=== PATIENT | male | born 1960 | race Hispanic/Latino ===

== ENCOUNTER 2019-08-03 16:29 | Inpatient (IN) | payer MEDICAID, OTHER ==
--- NOTE | 2019-08-03 18:08 | Emergency Department Report ---
<FATEMEH JURADO - Last Filed: 08/04/19 00:06> ED General Adult HPI - General Chief complaint: Chest Pain Stated complaint: CHEST PAIN Time Seen by Provider: 08/03/19 18:03 Source: patient Mode of arrival: Ambulatory Limitations: No Limitations - History of Present Illness Initial comments: 59-year-old male presents to the emergency room complaining of chest pain shortness of breath worse with inhalation 2 days. Patient does admit that he smokes cigarettes but has tapered down to 1-2 a day. Patient reports that he has constant chest pain worsening chest pain and shortness of breath but worse with deep breath. Patient denies any sick contacts, fevers, chills, nausea vomiting or diarrhea. Patient has a significant past medical history hypertension a AR 3 years ago with 2 stents placed.. Patient does admit sleeping with the fan on his face. -: days(s) Location: chest Severity scale (0 -10): 5 Quality: sharp Consistency: constant Worsens with: other (deep breath) Associated Symptoms: denies other symptoms Treatments Prior to Arrival: none - Related Data Home Medications Medication Instructions Recorded Confirmed Last Taken No Known Home Medications [No 02/07/16 02/07/16 Unknown Reported Home Medications] Allergies Allergy/AdvReac Type Severity Reaction Status Date / Time No Known Allergies Allergy Verified 06/07/15 05:39 ED Review of Systems Comment: All other systems reviewed and negative Respiratory: shortness of breath, SOB at rest Cardiovascular: chest pain ED Past Medical Hx - Past Medical History Hx Hypertension: Yes Hx Heart Attack/AMI: Yes Hx Congestive Heart Failure: No Hx Diabetes: No (borderline?) Hx Asthma: No Hx COPD: No - Surgical History Additional Surgical History: R.Knee. Umbilical Hernia - Social History Smoking Status: Current Every Day Smoker Substance Use Type: Alcohol - Medications Home Medications: Home Medications Medication Instructions Recorded Confirmed Last Taken Type No Known Home Medications [No 02/07/16 02/07/16 Unknown History Reported Home Medications] ED Physical Exam - General Limitations: No Limitations General appearance: alert, in no apparent distress - Head Head exam: Present: atraumatic, normocephalic - Eye Eye exam: Present: normal appearance - ENT ENT exam: Present: mucous membranes moist - Neck Neck exam: Present: normal inspection - Respiratory Respiratory exam: Present: other (mild crackles in the right lower lung field) - Cardiovascular Cardiovascular Exam: Present: regular rate, normal rhythm. Absent: systolic murmur, diastolic murmur, rubs, gallop - GI/Abdominal GI/Abdominal exam: Present: soft, normal bowel sounds - Extremities Exam Extremities exam: Present: normal inspection - Back Exam Back exam: Present: full ROM - Neurological Exam Neurological exam: Present: alert, oriented X3 - Psychiatric Psychiatric exam: Present: normal affect, normal mood - Skin Skin exam: Present: warm, dry, intact, normal color. Absent: rash ED Medical Decision Making - Lab Data Result diagrams: 08/03/19 19:36 08/03/19 19:36 - Radiology Data Radiology results: report reviewed Patient: SUAD STEIN MR#: [id number] : 1960 Acct:[id number] Age/Sex: 59 / M ADM Date: 08/03/19 Loc: ED Attending Dr: Ordering Physician: NELLI ROMANO Date of Service: 08/03/19 Procedure(s): CT angio chest Accession Number(s): [id number] cc: NELLI ROMANO CTA CHEST WITH IV CONTRAST INDICATION: SOB with chest pain. TECHNIQUE: Axial CT images were obtained through the chest after injection of 100 cc Omnipaque 350 IV contrast. 3 plane MIP reconstructions were produced. All CT scans at this location are performed using CT dose reduction for ALARA by means of automated exposure control. COMPARISON: None available. FINDINGS: PULMONARY ARTERIES: Large occlusive filling defect within the right lower lobar pulmonary artery and segmental branches. Moderate sized nonocclusive filling defect within the right middle lobar pu lmonary artery. No left-sided PT THORACIC AORTA: No acute abnormality. HEART: Normal. No CTA evidence for right ventricular strain CORONARY ARTERIES: Mild calcification. PLEURA: Small right pleural effusion No pneumothorax. LYMPH NODES: No significant adenopathy. Calcified right perihilar granulomas. LUNGS: Groundglass and streaky parenchymal disease right lower lobe likely secondary to pulmonary hemorrhage. Advanced bullous emphysema both upper lobes. Tiny calcified granuloma right lower lobe image 77. ADDITIONAL FINDINGS: None. UPPER ABDOMEN: Multiple calcified gallstones without CT evidence for cholecystitis. Moderate hepatic steatosis and scattered calcified hepatic and splenic granulomas. Several small bilateral renal cysts. SKELETAL STRUCTURES: Moderate spondylosis lower thoracic spine. IMPRESSION: 1. Large occlusive right lower lobar pulmonary embolus and moderate nonocclusive right middle lobe PTE 2. Parenchymal disease right lower lobe likely secondary to pulmonary hemorrhage with small right pleural effusion. 3. Advanced destructive emphysema 4. Cholelithiasis. Critical result large right-sided PTE discovered at 11:40 PM Central time hours and called to Eugenie Jurado at 11:44 PM central time hours on 08/03/2019. A read back was performed. Signer Name: Elliott Joshua MD Signed: 08/04/2019 12:48 AM Workstation Name: [id number] Transcribed By: TL Dictated By: Elliott Joshua MD Electronically Authenticated By: Elliott Joshua MD Signed Date/Time: 08/04/1947 DD/ TD/TT: - Medical Decision Making 59-year-old male presents to the emergency room complaining of chest pain shortness of breath worse with inhalation 2 days. Patient does admit that he smokes cigarettes but has tapered down to 1-2 a day. Patient reports that he has constant chest pain worsening chest pain and shortness of breath but worse with deep breath. Patient denies any sick contacts, fevers, chills, nausea v omiting or diarrhea. Patient has a significant past medical history hypertension a AR 3 years ago with 2 stents placed.. Patient does admit sleeping with the fan on his face. Discussed findings with Dr. Boyer ER attending. Spoke with Dr. Tran hospitalist to be evaluated for admission. ED Disposition Clinical Impression: Pulmonary embolism Disposition: OP ADMIT IP TO THIS HOSP Condition: Fair Referrals: PRIMARY CAREMD [Primary Care Provider] - 3-5 Days <ESTEBAN BOYER - Last Filed: 08/04/19 02:04> ED Review of Systems ROS: Stated complaint: CHEST PAIN Other details as noted in HPI ED Course Vital Signs 08/03/19 08/03/19 16:55 20:59 Temperature 98.2 F Pulse Rate 69 Respiratory 18 17 Rate Blood Pressure 117/79 O2 Sat by Pulse 95 Oximetry ED Medical Decision Making - Lab Data Result diagrams: 08/03/19 19:36 08/03/19 19:36 - Medical Decision Making Addendum Esteban Hill,M.D. will see patient on consult Okay to stay Per Dr. Adams if vascular on board and okay with plan of anticoagulation with Heparin Spoke to Dr. Stephens and patient reviewed in detail. okay to stay and willing to consult if needed also agrees with heparin Patient seen and examined by me as well patient complains of chest pain with deep breathing and on exertion. Physical exam GEN: A&O x 3, no acute distress Head: atraumatic, normocephalic ENT; Moist Mucous membranes CV: RRR w/o MRG Resp: CTAB Ab:s/nt/nd/+BS Neuro: CN 2-12 intact skin: warm,dry,no rash Psych: Not suicidal or homicidal Eyes: PERRL,EOMI Results discussed with patient and the need for admission Critical Care Time: Yes Critical care time in (mins) excluding proc time.: 90 Critical care attestation.: If time is entered above; I have spent that time in minutes in the direct care of this critically ill patient, excluding procedure time. ED Disposition Is pt being admited?: Yes Does the pt Need Aspirin: No
--- NOTE | 2019-08-03 18:33 | XRay Report ---
CHEST 2 VIEWS INDICATION / CLINICAL INFORMATION: shortness of breath chest pain history of NM. COMPARISON: None available. FINDINGS: SUPPORT DEVICES: None. HEART / MEDIASTINUM: No significant abnormality. LUNGS / PLEURA: Moderate to large right pleural effusion. There is some lucency involving both apices possibly secondary to emphysematous blebs. Signer Name: Payam Crain MD Signed: 08/03/2019 6:28 PM Workstation Name: [id number]
[2019-08-03 19:47] LABS: Basophils # (Auto) 0.1 K/mm3 (0.0-0.1); Basophils % (Auto) 0.4 % (0.0-1.8); Eosinophils % (Auto) 0.3 % (0.0-4.3); Lymphocytes # (Auto) 1.3 K/mm3 (1.2-5.4); Lymphocytes % (Auto) 9.5 % (13.4-35.0); Mean Corpuscular HGB Conc 33 % (32-34); Mean Corpuscular Volume 92 fl (84-94); Monocytes # (Auto) 0.9 K/mm3 (0.0-0.8); Monocytes % (Auto) 6.4 % (0.0-7.3); Platelet Count 240 K/mm3 (140-440); Red Blood Count 4.92 M/mm3 (3.65-5.03); Red Cell Distribution Width 14.8 % (13.2-15.2)
[2019-08-03 20:23] LABS: Alanine Aminotransferase 20 units/L (7-56); Albumin 3.8 g/dL (3.9-5); BUN/Creatinine Ratio 14; Blood Urea Nitrogen 22 mg/dL (9-20); Calcium 9.3 mg/dL (8.4-10.2); Hemolysis Index 9
--- NOTE | 2019-08-04 00:52 | Cat Scan Report ---
CTA CHEST WITH IV CONTRAST INDICATION: SOB with chest pain. TECHNIQUE: Axial CT images were obtained through the chest after injection of 100 cc Omnipaque 350 IV contrast. 3 plane MIP reconstructions were produced. All CT scans at this location are performed using CT dose reduction for ALARA by means of automated exposure control. COMPARISON: None available. FINDINGS: PULMONARY ARTERIES: Large occlusive filling defect within the right lower lobar pulmonary artery and segmental branches. Moderate sized nonocclusive filling defect within the right middle lobar pulmonar y artery. No left-sided PT THORACIC AORTA: No acute abnormality. HEART: Normal. No CTA evidence for right ventricular strain CORONARY ARTERIES: Mild calcification. PLEURA: Small right pleural effusion No pneumothorax. LYMPH NODES: No significant adenopathy. Calcified right perihilar granulomas. LUNGS: Groundglass and streaky parenchymal disease right lower lobe likely secondary to pulmonary hem orrhage. Advanced bullous emphysema both upper lobes. Tiny calcified granuloma right lower lobe image 77. ADDITIONAL FINDINGS: None. UPPER ABDOMEN: Multiple calcified gallstones without CT evidence for cholecystitis. Moderate hepatic steatosis and scattered calcified hepatic and splenic granulomas. Several small bilateral renal cysts . SKELETAL STRUCTURES: Moderate spondylosis lower thoracic spine. IMPRESSION: 1. Large occlusive right lower lobar pulmonary embolus and moderate nonocclusive right middle lobe PT E 2. Parenchymal disease right lower lobe likely secondary to pulmonary hemorrhage with small right ple ural effusion. 3. Advanced destructive emphysema 4. Cholelithiasis. Critical result large right-sided PTE discovered at 11:40 PM Central time hours and called to Eugenie stout at 11:44 PM central time hours on 08/03/2019. A read back was performed. Signer Name: Elliott Joshua MD Signed: 08/04/2019 12:48 AM Workstation Name: [id number]
[2019-08-04] MEDS ORDERED: HEPARIN 10,000 UNITS/10 ML IV ONE (01:57)
[2019-08-04] MEDS: HEPARIN/ 0.45% NACL-25,000 UNIT/500 ML 25,000 UNIT/500 ML BAG IV SCH ×2 (02:40→21:22)
[2019-08-04] MEDS ORDERED: ZOFRAN IV PRN (02:41)
[2019-08-04] MEDS ORDERED: MORPHINE IV PRN (02:41)
[2019-08-04] MEDS ORDERED: TYLENOL PO PRN (02:41)
[2019-08-04] MEDS ORDERED: SODIUM CHLORIDE FLUSH SYRINGE 10 ML IV PRN (02:41)
--- NOTE | 2019-08-04 02:59 | History and Physical Report ---
History of Present Illness Date of examination: 08/04/19 History of present illness: 59-year-old man with a history of hypertension, anxiety comes emergency room with complaints of pleuritic chest pain shortness of breath. Pain is in the epigastric and mid back that started 2 days ago, sharp, only weight deep breaths, no radiation, cannot identify relieving factors. Denies nausea vomiting, diaphoresis, recent travel, surgery eview Of Systems: Constitutional: no weight loss, fever, chills Ears, eyes, nose, mouth and throat: no nasal congestion, no nasal discharge, no sinus pressure, blurry vision, diplopia Neck: No neck pain or rigidity. Cardiovascular: No palpitations Respiratory: No cough Gastrointestinal: No hematochezia, abdominal pain Genitourinary : no dysuria, frequency , hematuria Musculoskeletal: no muscle ache , joint pain Integumentary: no rash, no pruritis Neurological: no parathesias, focal weakness Endocrine: no cold or heat intolerance, no polyuria or polydipsia Hematologic/Lymphatic: no easy bruising, no easy bleeding, no gland swelling Allergic/Immunologic: no urticaria, no angioedema. PAST MEDICAL HISTORY:hypertension, anxiety PAST SURGICAL HISTORY: hernia, Knee FAMILY HISTORY:hypertension, diabetes SOCIAL HISTORY: Denies tobacco, drugs, alcohol Medications and Allergies Allergies Allergy/AdvReac Type Severity Reaction Status Date / Time No Known Allergies Allergy Verified 06/07/15 05:39 Home Medications Medication Instructions Recorded Confirmed Last Taken Type Atorvastatin 40 mg PO DAILY 08/04/19 08/04/19 1 Day Ago History ~08/03/19 1 Lisinopril 30 mg PO DAILY 08/04/19 08/04/19 1 Day Ago History ~08/03/19 1 Metoprolol SUCCINATE ER TAB 25 mg PO DAILY 08/04/19 08/04/19 1 Day Ago History ~08/03/19 1 tab amLODIPine 5 mg PO DAILY 08/04/19 08/04/19 1 Day Ago History ~08/03/19 1 Active Meds: Active Medications Acetaminophen (Tylenol) 650 mg PO Q4H PRN PRN Reason: Pain MILD(1-3)/Fever >100.5/[place] Heparin Sodium/Sodium Chloride (Heparin/ 0.45% Nacl-25,000 Unit/500 Ml) 25,000 unit in 500 mls @ 30 mls/hr IV TITR JOHN; Protocol Last Admin: 08/04/19 02:40 Dose: 1,500 units/hr, 30 mls/hr Documented by: Morphine Sulfate (Morphine) 2 mg IV Q4H PRN PRN Reason: Pain, Moderate (4-6) Ondansetron HCl (Zofran) 4 mg IV Q8H PRN PRN Reason: Nausea And Vomiting Sodium Chloride (Sodium Chloride Flush Syringe 10 Ml) 10 ml IV BID JOHN Sodium Chloride (Sodium Chloride Flush Syringe 10 Ml) 10 ml IV PRN PRN PRN Reason: LINE FLUSH Exam - Physical Exam Narrative exam: General Apperance: The patient sitting in bed no acute distress HEENT: Normocephalic, atraumatic. Pupils equally round and reactive to light, extraocular movement intact, and no sclericterus or JVD or thyromegaly or nodule. Neck supple, no carotid bruit, mucous membranes moist, no exudate or erythema Heart: S1-S2, regular is rhythm Lungs: Clear to auscultation bilaterally, breathing comfortable Abdomen: Positive bowel sounds, soft, nontender, nondistended, no organomegaly Extremities: No edema cyanosis clubbing Skin: no rash, nodule, warm and dry Neuro:CN 2 -12 intact, motor/sensory intact, speech is fluent - Constitutional Vitals: Temp Pulse Resp BP Pulse Ox 98.2 F 69 17 117/79 95 08/03/19 16:55 08/03/19 16:55 08/03/19 20:59 08/03/19 16:55 08/03/19 16:55 Results - Labs CBC & Chem 7: 08/06/19 03:26 08/04/19 03:33 Labs: Abnormal lab results 08/03/19 08/03/19 08/04/19 Range/Units 19:36 19:36 02:06 WBC 13.4 H (4.5-11.0) K/mm3 Hgb 15.5 H (11.8-15.2) gm/dl Hct 45.8 H (35.5-45.6) % Plt Count 5 L* (140-440) K/mm3 Lymph % (Auto) 9.5 L (13.4-35.0) % Bradford # 0.9 H (0.0-0.8) K/mm3 Seg Neutrophils % 83.4 H (40.0-70.0) % Seg Neutrophils # 11.2 H (1.8-7.7) K/mm3 APTT (24.2-36.6) Sec. Sodium 135 L (137-145) mmol/L Carbon Dioxide 19 L (22-30) mmol/L BUN 22 H (9-20) mg/dL Creatinine 1.6 H (0.8-1.5) mg/dL Glucose 102 H (75-100) mg/dL Total Protein 8.5 H (6.3-8.2) g/dL Albumin 3.8 L (3.9-5) g/dL 08/04/19 Range/Units 02:06 WBC (4.5-11.0) K/mm3 Hgb (11.8-15.2) gm/dl Hct (35.5-45.6) % Plt Count (140-440) K/mm3 Lymph % (Auto) (13.4-35.0) % Bradford # (0.0-0.8) K/mm3 Seg Neutrophils % (40.0-70.0) % Seg Neutrophils # (1.8-7.7) K/mm3 APTT 20.0 L (24.2-36.6) Sec. Sodium (137-145) mmol/L Carbon Dioxide (22-30) mmol/L BUN (9-20) mg/dL Creatinine (0.8-1.5) mg/dL Glucose (75-100) mg/dL Total Protein (6.3-8.2) g/dL Albumin (3.9-5) g/dL - Imaging and Cardiology CT scan - chest: report reviewed Assessment and Plan Assessment Acute pulmonary emboli Pulmonary hemorrhage versus infarct Renal insufficiency,? Acute versus chronic Hypertension Obesity Plan Admit to medicine Vascular and pulmonary were consulted to see the patient Vascular reviewed the film per the emergency room physician and states okay to start heparin "Pulmonary hemorrhage" seen is most likely infarct Monitor serial hemoglobin, start IV fluids Doppler of lower extremity DVT prophylaxis, IV morphine
[2019-08-04 03:18] LABS: Hemoglobin TNR gm/dl (11.8-15.2)
[2019-08-04 03:19] LABS: Hematocrit TNR % (35.5-45.6); Platelet Count TNR K/mm3 (140-440)
[2019-08-04 03:46] LABS: Basophils # (Auto) 0.1 K/mm3 (0.0-0.1); Basophils % (Auto) 0.3 % (0.0-1.8); Eosinophils % (Auto) 0.2 % (0.0-4.3); Hemoglobin 13.6 gm/dl (11.8-15.2); Lymphocytes # (Auto) 2.1 K/mm3 (1.2-5.4); Mean Corpuscular HGB Conc 34 % (32-34); Mean Corpuscular Volume 91 fl (84-94); Monocytes # (Auto) 1.2 K/mm3 (0.0-0.8); Monocytes % (Auto) 7.8 % (0.0-7.3); Platelet Count 264 K/mm3 (140-440)
[2019-08-04 04:04] LABS: Calcium 9.4 mg/dL (8.4-10.2)
--- NOTE | 2019-08-04 09:01 | Consultation ---
History of Present Illness Consult date: 08/04/19 Requesting physician: ROSALINE RUEDA Reason for consult: pulmonary embolism History of present illness: PCCM CONSULT NOTE (Full dictation # [id number]) Please see dictated notes for full details Medications and Allergies Allergies Allergy/AdvReac Type Severity Reaction Status Date / Time No Known Allergies Allergy Verified 06/07/15 05:39 Home Medications Medication Instructions Recorded Confirmed Last Taken Type Atorvastatin 40 mg PO DAILY 08/04/19 08/04/19 1 Day Ago History ~08/03/19 1 Lisinopril 30 mg PO DAILY 08/04/19 08/04/19 1 Day Ago History ~08/03/19 1 Metoprolol SUCCINATE ER TAB 25 mg PO DAILY 08/04/19 08/04/19 1 Day Ago History ~08/03/19 1 tab amLODIPine 5 mg PO DAILY 08/04/19 08/04/19 1 Day Ago History ~08/03/19 1 Active Meds: Active Medications Acetaminophen (Tylenol) 650 mg PO Q4H PRN PRN Reason: Pain MILD(1-3)/Fever >100.5/[place] Heparin Sodium/Sodium Chloride (Heparin/ 0.45% Nacl-25,000 Unit/500 Ml) 25,000 unit in 500 mls @ 30 mls/hr IV TITR JOHN; Protocol Last Admin: 08/04/19 02:40 Dose: 1,500 units/hr, 30 mls/hr Documented by: Sodium Chloride (Nacl 0.45% 1000 Ml) 1,000 mls @ 100 mls/hr IV DIRECT JOHN Morphine Sulfate (Morphine) 2 mg IV Q4H PRN PRN Reason: Pain, Moderate (4-6) Ondansetron HCl (Zofran) 4 mg IV Q8H PRN PRN Reason: Nausea And Vomiting Sodium Chloride (Sodium Chloride Flush Syringe 10 Ml) 10 ml IV BID JOHN Sodium Chloride (Sodium Chloride Flush Syringe 10 Ml) 10 ml IV PRN PRN PRN Reason: LINE FLUSH Physical Examination Vital signs: Vital Signs Temp Pulse Resp BP Pulse Ox 98.2 F 69 18 117/79 95 08/03/19 16:55 08/03/19 16:55 08/03/19 16:55 08/03/19 16:55 08/03/19 16:55 Results - Laboratory Findings CBC and BMP: 08/04/19 03:33 08/04/19 03:33 PT/INR, D-dimer PT 12.9 Sec. (12.2-14.9) 08/04/19 02:06 INR 1.00 (0.87-1.13) 08/04/19 02:06 Abnormal lab findings: Abnormal Labs 08/03/19 08/03/19 08/04/19 19:36 19:36 02:06 WBC 13.4 H Lymph % (Auto) 9.5 L Bucks % (Auto) Bucks # 0.9 H Seg Neutrophils % 83.4 H Seg Neutrophils # 11.2 H APTT 20.0 L Sodium 135 L Carbon Dioxide 19 L BUN 22 H Creatinine 1.6 H Glucose 102 H Total Protein 8.5 H Albumin 3.8 L 08/04/19 08/04/19 03:33 03:33 WBC 15.1 H Lymph % (Auto) Bucks % (Auto) 7.8 H Bucks # 1.2 H Seg Neutrophils % 77.7 H Seg Neutrophils # 11.8 H APTT Sodium 135 L Carbon Dioxide 20 L BUN 24 H Creatinine 1.6 H Glucose 107 H Total Protein Albumin
[2019-08-04] MEDS: SODIUM CHLORIDE FLUSH SYRINGE 10 ML IV SCH ×2 (10:58→22:16)
--- NOTE | 2019-08-04 12:12 | Consultation ---
History of Present Illness - Reason for Consult Consult date: 08/04/19 right lower lobe pulmonary embolism - History of Present Illness Patient with a history of 2 week of posterior lateral right pleuritic chest pain. CT was performed which demonstrates what appears to be occlusive embolism involving the right lower lobe. Patient has emphysema. Additionally, the patient has a history several years ago of right chest pain for which she presented to an outside hospital. 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 He did not follow up with a program therapist at this time. Additionally, the patient in 2014 had coronary artery stents placed for which he took no anticoagulation following discharge and there was no follow-up. CTA of the chest was reviewed. This demonstrates occlusive thrombus involving the right lower lobe pulmonary arteries with airspace disease/infarct distal to the thrombus. Uncertain as to the chronicity or baseline pulmonary findings. Additionally, the patient states that he had previously been taking 325 mg of aspirin daily, he stopped approximately 1 month ago Medications and Allergies Allergies Allergy/AdvReac Type Severity Reaction Status Date / Time No Known Allergies Allergy Verified 06/07/15 05:39 Home Medications Medication Instructions Recorded Confirmed Last Taken Type Metoprolol SUCCINATE ER TAB 25 mg PO DAILY 08/04/19 08/04/19 1 Day Ago History ~08/03/19 1 tab Active Meds: Active Medications Acetaminophen (Tylenol) 650 mg PO Q4H PRN PRN Reason: Pain MILD(1-3)/Fever >100.5/[place] Heparin Sodium/Sodium Chloride (Heparin/ 0.45% Nacl-25,000 Unit/500 Ml) 25,000 unit in 500 mls @ 30 mls/hr IV TITR JOHN; Protocol Last Admin: 08/04/19 02:40 Dose: 1,500 units/hr, 30 mls/hr Documented by: Sodium Chloride (Nacl 0.45% 1000 Ml) 1,000 mls @ 100 mls/hr IV DIRECT JOHN Morphine Sulfate (Morphine) 2 mg IV Q4H PRN PRN Reason: Pain, Moderate (4-6) Ondansetron HCl (Zofran) 4 mg IV Q8H PRN PRN Reason: Nausea And Vomiting Sodium Chloride (Sodium Chloride Flush Syringe 10 Ml) 10 ml IV BID JOHN Sodium Chloride (Sodium Chloride Flush Syringe 10 Ml) 10 ml IV PRN PRN PRN Reason: LINE FLUSH Review of Systems All systems: negative Exam - Constitutional Vitals: Temp Pulse Resp BP Pulse Ox 98.2 F 78 13 143/84 96 08/04/19 07:00 08/04/19 10:00 08/04/19 07:00 08/04/19 07:00 08/04/19 08:55 General appearance: Present: no acute distress - EENT Eyes: Present: EOM intact ENT: hearing intact - Neck Neck: Present: supple, normal ROM - Respiratory Respiratory effort: normal - Abdominal General gastrointestinal: Present: deferred Male genitourinary: Present: deferred - Psychiatric Psychiatric: appropriate mood/affect, cooperative - Neurologic Neurologic: no focal deficits Results - Labs CBC & Chem 7: 08/04/19 03:33 08/04/19 03:33 Labs: Abnormal lab results 08/03/19 08/03/19 08/04/19 Range/Units 19:36 19:36 02:06 WBC 13.4 H (4.5-11.0) K/mm3 Lymph % (Auto) 9.5 L (13.4-35.0) % Shelby % (Auto) (0.0-7.3) % Shelby # 0.9 H (0.0-0.8) K/mm3 Seg Neutrophils % 83.4 H (40.0-70.0) % Seg Neutrophils # 11.2 H (1.8-7.7) K/mm3 APTT 20.0 L (24.2-36.6) Sec. Sodium 135 L (137-145) mmol/L Carbon Dioxide 19 L (22-30) mmol/L BUN 22 H (9-20) mg/dL Creatinine 1.6 H (0.8-1.5) mg/dL Glucose 102 H (75-100) mg/dL Total Protein 8.5 H (6.3-8.2) g/dL Albumin 3.8 L (3.9-5) g/dL 08/04/19 08/04/19 Range/Units 03:33 03:33 WBC 15.1 H (4.5-11.0) K/mm3 Lymph % (Auto) (13.4-35.0) % Shelby % (Auto) 7.8 H (0.0-7.3) % Shelby # 1.2 H (0.0-0.8) K/mm3 Seg Neutrophils % 77.7 H (40.0-70.0) % Seg Neutrophils # 11.8 H (1.8-7.7) K/mm3 APTT (24.2-36.6) Sec. Sodium 135 L (137-145) mmol/L Carbon Dioxide 20 L (22-30) mmol/L BUN 24 H (9-20) mg/dL Creatinine 1.6 H (0.8-1.5) mg/dL Glucose 107 H (75-100) mg/dL Total Protein (6.3-8.2) g/dL Albumin (3.9-5) g/dL - Imaging and Cardiology CT scan - chest: report reviewed, image reviewed Assessment and Plan Given the patient's history of a pulmonary mass with associated infection, an MRI of the chest with IV contrast has been ordered. The patient is currently being anticoagulated with heparin, if this appears only to be a DVT with associated PE, patient will need to be anticoagulated for at least 6 months. The patient is resting comfortably breathing room air. There is no indication at this time for any catheter directed therapy.
--- NOTE | 2019-08-04 12:37 | Vascular Lab Report ---
DUPLEX DOPPLER LOWER EXTREMITY VEINS, BILATERAL INDICATION / CLINICAL INFORMATION: dvt. Bilateral lower extremity swelling. History of pulmonary embolism. TECHNIQUE: Duplex doppler imaging was performed through the veins of both lower extremities using venous yandel lakshmi and other maneuvers. COMPARISON: None available. FINDINGS: Right Common Femoral vein: Negative. Right Femoral vein: Negative. Right Popliteal vein: Negative. Right Calf veins: Negative. Left Common Femoral vein: Negative. Left Femoral vein: Negative. Left Popliteal vein: Negative. Left Calf veins: Negative. Additional findings: None. IMPRESSION: 1. No sonographic evidence for DVT in either lower extremity. Signer Name: Tre Renteria MD Signed: 08/04/2019 12:32 PM Workstation Name: [id number]
[2019-08-04] MEDS ORDERED: NON-FORMULARY (Atorvastatin 40 MG) PO SCH (16:15)
[2019-08-04] MEDS ORDERED: NON-FORMULARY (Metoprolol Succinate Er Tab 25 MG) PO SCH (16:15)
[2019-08-04] MEDS ORDERED: LISINOPRIL 30 MG PO SCH (16:15)
[2019-08-04] MEDS ORDERED: NON-FORMULARY (Amlodipine 5 MG) PO SCH (16:15)
[2019-08-04] MEDS: ZESTRIL PO SCH ×2 (18:00→18:12)
[2019-08-04] MEDS: NORVASC PO SCH ×2 (18:00→18:13)
[2019-08-04] MEDS: TOPROL XL PO SCH ×2 (18:00→18:14)
[2019-08-05] MEDS: ZESTRIL PO SCH (09:55)
[2019-08-05] MEDS: TOPROL XL PO SCH (09:56)
[2019-08-05] MEDS: NORVASC PO SCH (09:56)
[2019-08-05] MEDS: SODIUM CHLORIDE FLUSH SYRINGE 10 ML IV SCH ×2 (09:57→21:57)
--- NOTE | 2019-08-05 11:10 | Progress Note ---
Assessment and Plan Assessment and plan: 59-year-old man with a history of hypertension, anxiety comes emergency room with complaints of pleuritic chest pain shortness of breath. Acute pulmonary emboli Pulmonary hemorrhage versus infarct Renal insufficiency,? Acute versus chronic Hypertension Obesity Plan Vascular and pulmonary consults appreciated continue blood thinners Hospitalist Physical - Constitutional Vitals: Temp Pulse Resp BP Pulse Ox 97.7 F 67 10 L 121/92 94 08/05/19 07:34 08/05/19 09:56 08/05/19 09:00 08/05/19 09:56 08/05/19 09:25 General appearance: Present: no acute distress Results - Labs CBC & Chem 7: 08/04/19 03:33 08/04/19 03:33 Labs: Laboratory Last Values WBC 15.1 K/mm3 (4.5-11.0) H 08/04/19 03:33 RBC 4.40 M/mm3 (3.65-5.03) 08/04/19 03:33 Hgb 13.6 gm/dl (11.8-15.2) 08/04/19 03:33 Hct 40.0 % (35.5-45.6) 08/04/19 03:33 MCV 91 fl (84-94) 08/04/19 03:33 MCH 31 pg (28-32) 08/04/19 03:33 MCHC 34 % (32-34) 08/04/19 03:33 RDW 15.0 % (13.2-15.2) 08/04/19 03:33 Plt Count 264 K/mm3 (140-440) 08/04/19 03:33 Lymph % (Auto) 14.0 % (13.4-35.0) 08/04/19 03:33 Lewis % (Auto) 7.8 % (0.0-7.3) H 08/04/19 03:33 Eos % (Auto) 0.2 % (0.0-4.3) 08/04/19 03:33 Baso % (Auto) 0.3 % (0.0-1.8) 08/04/19 03:33 Lymph # 2.1 K/mm3 (1.2-5.4) 08/04/19 03:33 Lewis # 1.2 K/mm3 (0.0-0.8) H 08/04/19 03:33 Eos # 0.0 K/mm3 (0.0-0.4) 08/04/19 03:33 Baso # 0.1 K/mm3 (0.0-0.1) 08/04/19 03:33 Seg Neutrophils % 77.7 % (40.0-70.0) H 08/04/19 03:33 Seg Neutrophils # 11.8 K/mm3 (1.8-7.7) H 08/04/19 03:33 PT 12.9 Sec. (12.2-14.9) 08/04/19 02:06 INR 1.00 (0.87-1.13) 08/04/19 02:06 APTT 20.0 Sec. (24.2-36.6) L 08/04/19 02:06 Heparin Anti-Xa Level 0.29 U.I./ml (0.3-0.7) L 08/05/19 10:16 Sodium 135 mmol/L (137-145) L 08/04/19 03:33 Potassium 4.5 mmol/L (3.6-5.0) 08/04/19 03:33 Chloride 98.2 mmol/L (98-107) 08/04/19 03:33 Carbon Dioxide 20 mmol/L (22-30) L 08/04/19 03:33 21 mmol/L 08/04/19 03:33 BUN 24 mg/dL (9-20) H 08/04/19 03:33 1.6 mg/dL (0.8-1.5) H 08/04/19 03:33 Estimated GFR 44 ml/min 08/04/19 03:33 15 % 08/04/19 03:33 Glucose 107 mg/dL (75-100) H 08/04/19 03:33 Calcium 9.4 mg/dL (8.4-10.2) 08/04/19 03:33 0.50 mg/dL (0.1-1.2) 08/03/19 19:36 AST 18 units/L (5-40) 08/03/19 19:36 ALT 20 units/L (7-56) 08/03/19 19:36 100 units/L (35-129) 08/03/19 19:36 < 0.010 ng/mL (0.00-0.029) 08/03/19 20:55 NT-Pro-B Natriuret Pep 37.83 pg/mL (0-900) 08/03/19 19:36 8.5 g/dL (6.3-8.2) H 08/03/19 19:36 3.8 g/dL (3.9-5) L 08/03/19 19:36 0.8 % 08/03/19 19:36 Active Medications - Current Medications Current Medications: Generic Name Dose Route Start Last Admin Trade Name Freq PRN Reason Stop Dose Admin Acetaminophen 650 mg 08/04/19 02:41 08/05/19 10:03 Tylenol PO 650 mg Q4H PRN Administration Pain MILD(1-3)/Fever >100.5/[place] Amlodipine Besylate 5 mg 08/04/19 16:15 08/05/19 09:56 Norvasc PO 5 mg QDAY JOHN Administration Atorvastatin Calcium 40 mg 08/04/19 16:15 08/05/19 09:55 Lipitor PO 40 mg QDAY JOHN Administration Heparin Sodium/Sodium Chloride 25,000 unit in 500 mls @ 30 mls/hr 08/04/19 02:00 08/05/19 04:00 Heparin/ 0.45% Nacl-25,000 Unit/500 Ml IV 1,700 units/hr TITR JOHN 34 mls/hr Titration Protocol 1,500 UNITS/HR Sodium Chloride 1,000 mls @ 100 mls/hr 08/04/19 04:00 Nacl 0.45% 1000 Ml IV DIRECT JOHN Lisinopril 30 mg 08/04/19 16:15 08/05/19 09:55 Zestril PO 30 mg QDAY JOHN Administration Metoprolol Succinate 25 mg 08/04/19 16:15 08/05/19 09:56 Toprol Xl PO 25 mg QDAY JOHN Administration Morphine Sulfate 2 mg 08/04/19 02:41 Morphine IV Q4H PRN Pain, Moderate (4-6) Ondansetron HCl 4 mg 08/04/19 02:41 Zofran IV Q8H PRN Nausea And Vomiting Sodium Chloride 10 ml 08/04/19 10:00 08/05/19 09:57 Sodium Chloride Flush Syringe 10 Ml IV 10 ml BID JOHN Administration Sodium Chloride 10 ml 08/04/19 02:41 Sodium Chloride Flush Syringe 10 Ml IV PRN PRN LINE FLUSH
--- NOTE | 2019-08-05 11:10 | Progress Note ---
Assessment and Plan Acute pulmonary embolus. Post-embolic infarct. Small right pleural effusion versus hemorrhage. Acute kidney insufficiency, possible chronic element. History of hypertension. Morbid obesity. Tobacco use disorder. History of anxiety. - continue full anticoagulation - follow stool guaiac - supplemental oxygen as needed to keep O2 sat's > 90% - tobacco abstinence counseled - weight loss counseled - hematology consultation per attending - GI prophylaxis - continue other care per attending / other consultants ... re-evaluate in am & prn Subjective Date of service: 08/05/19 Principal diagnosis: Ac. Pulm Embolus; Post-embolic infarct; LITO; HTN; Morbid obesity Interval history: Patient is seen today for: Acute pulmonary embolus; Post-embolic infarct; Small R. pleural effusion versus hemorrhage; Acute kidney insufficiency,; History of hypertension; Morbid obesity; Tobacco use disorder; History of anxiety. Seen and examined at bedside; 24hour events reviewed; nursing and respiratory care staff consulted; no adverse overnight events reported to me; resting peacefully in bed; denies acute chest pains or palpitations; No N/V/F/C; no gross bleeding Objective Vital Signs - 12hr 08/04/19 08/04/19 08/04/19 23:20 23:30 23:40 Temperature Pulse Rate 55 L 68 56 L Pulse Rate [ From Monitor] Respiratory 18 16 19 Rate Blood Pressure 108/58 108/58 108/58 O2 Sat by Pulse 95 95 95 Oximetry 08/04/19 08/05/19 08/05/19 23:50 00:00 00:10 Temperature Pulse Rate 55 L 54 L 60 Pulse Rate [ 60 From Monitor] Respiratory 19 18 18 Rate Blood Pressure 108/58 102/63 102/63 O2 Sat by Pulse 96 94 96 Oximetry 08/05/19 08/05/19 08/05/19 00:20 00:30 00:39 Temperature 97.8 F Pulse Rate 58 L 59 L Pulse Rate [ From Monitor] Respiratory 18 20 Rate Blood Pressure 102/63 102/63 O2 Sat by Pulse 94 94 Oximetry 08/05/19 08/05/19 08/05/19 00:40 00:50 01:00 Temperature Pulse Rate 60 62 63 Pulse Rate [ From Monitor] Respiratory 18 19 20 Rate Blood Pressure 102/63 102/63 90/49 O2 Sat by Pulse 93 92 93 Oximetry 08/05/19 08/05/1908/05/19 01:10 01:20 01:30 Temperature Pulse Rate 59 L 61 62 Pulse Rate [ From Monitor] Respiratory 19 Rate Blood Pressure 90/49 90/49 90/49 O2 Sat by Pulse 94 93 92 Oximetry 08/05/19 08/05/19 08/05/19 01:40 01:50 02:00 Temperature Pulse Rate 60 62 72 Pulse Rate [ From Monitor] Respiratory 18 20 19 Rate Blood Pressure 90/49 90/49 104/69 O2 Sat by Pulse 93 95 93 Oximetry 08/05/19 08/05/19 08/05/19 02:10 02:20 02:30 Temperature Pulse Rate 74 55 L 54 L Pulse Rate [ From Monitor] Respiratory 19 20 19 Rate Blood Pressure 104/69 104/69 104/69 O2 Sat by Pulse 98 94 94 Oximetry 08/05/19 08/05/19 08/05/19 02:40 02:50 03:00 Temperature Pulse Rate 54 L 56 L 55 L Pulse Rate [ From Monitor] Respiratory 19 19 18 Rate Blood Pressure 104/69 104/69 96/60 O2 Sat by Pulse 93 93 93 Oximetry 08/05/19 08/05/19 08/05/19 03:10 03:20 03:30 Temperature Pulse Rate 54 L 53 L 57 L Pulse Rate [ From Monitor] Respiratory 19 Rate Blood Pressure 96/60 O2 Sat by Pulse 92 92 92 Oximetry 08/05/19 08/05/19 08/05/19 03:40 03:50 04:00 Temperature Pulse Rate 55 L 53 L 53 L Pulse Rate [ 53 L From Monitor] Respiratory 19 17 19 Rate Blood Pressure 96/60 96/60 114/73 O2 Sat by Pulse 92 95 94 Oximetry 08/05/19 08/05/19 08/05/19 04:10 04:20 04:30 Temperature Pulse Rate 54 L 55 L 54 L Pulse Rate [ From Monitor] Respiratory 18 21 18 Rate Blood Pressure 114/73 114/73 114/73 O2 Sat by Pulse 93 95 93 Oximetry 08/05/19 08/05/19 08/05/19 04:39 04:40 04:50 Temperature 97.6 F Pulse Rate 54 L 53 L Pulse Rate [ From Monitor] Respiratory 19 19 Rate Blood Pressure 114/73 114/73 O2 Sat by Pulse 94 96 Oximetry 08/05/19 08/05/1919 05:00 05:10 05:20 Temperature Pulse Rate 53 L 58 L 57 L Pulse Rate [ From Monitor] Respiratory 20 18 18 Rate Blood Pressure 105/71 105/71 105/71 O2 Sat by Pulse 95 94 94 Oximetry 08/05/19 08/05/19 08/05/19 05:30 05:40 05:50 Temperature Pulse Rate 54 L 56 L 57 L Pulse Rate [ From Monitor] Respiratory 19 17 18 Rate Blood Pressure 105/71 105/71 105/71 O2 Sat by Pulse 94 94 94 Oximetry 08/05/19 08/05/19 08/05/19 06:00 06:10 06:20 Temperature Pulse Rate 53 L 52 L 51 L Pulse Rate [ From Monitor] Respiratory 18 18 18 Rate Blood Pressure 96/63 96/63 96/63 O2 Sat by Pulse 93 95 95 Oximetry 08/05/19 08/05/19 08/05/19 06:30 06:40 06:50 Temperature Pulse Rate 60 53 L 53 L Pulse Rate [ From Monitor] Respiratory 16 21 19 Rate Blood Pressure 96/63 96/63 96/63 O2 Sat by Pulse 95 94 94 Oximetry 08/05/19 08/05/19 08/05/19 07:00 07:10 07:20 Temperature Pulse Rate 52 L 52 L 56 L Pulse Rate [ From Monitor] Respiratory 19 19 16 Rate Blood Pressure 106/68 106/68 106/68 O2 Sat by Pulse 94 93 94 Oximetry 08/05/19 08/05/19 08/05/19 07:30 07:34 07:40 Temperature 97.7 F Pulse Rate 52 L 52 L Pulse Rate [ From Monitor] Respiratory 17 18 Rate Blood Pressure 106/68 106/68 O2 Sat by Pulse 95 94 Oximetry 08/05/19 08/05/19 08/05/19 07:50 08:00 08:10 Temperature Pulse Rate 73 56 L 52 L Pulse Rate [ 53 L From Monitor] Respiratory 26 H 16 17 Rate Blood Pressure 106/68 110/70 110/70 O2 Sat by Pulse 95 94 96 Oximetry 08/05/19 08/05/19 08/05/19 08:20 08:30 08:40 Temperature Pulse Rate 53 L 55 L 64 Pulse Rate [ From Monitor] Respiratory 19 19 21 Rate Blood Pressure 110/70 110/70 110/70 O2 Sat by Pulse 93 93 96 Oximetry 08/05/19 08/05/19 08/05/19 08:50 09:00 09:25 Temperature Pulse Rate 60 66 Pulse Rate [ From Monitor] Respiratory 18 10 L Rate Blood Pressure 110/70 121/92 O2 Sat by Pulse 97 95 94 Oximetry 08/05/19 08/05/19 09:55 09:56 Temperature Pulse Rate 67 67 Pulse Rate [ From Monitor] Respiratory Rate Blood Pressure 121/92 121/92 O2 Sat by Pulse Oximetry Constitutional: no acute distress, other (middle aged obese CM, normocephalic and atraumatic ) Eyes: non-icteric ENT: oropharynx moist, other (Mallampati 3) Neck: supple, no lymphadenopathy, no JVD, other (large neck circumference) Effort: mildly labored Ascultation: Right: diminished breath sounds (base), Bilateral: rhonchi Percussion: Bilateral: not dull Cardiovascular: regular rate and rhythm Gastrointestinal: normoactive bowel sounds, soft, non-tender, non-distended, other (protuberant) Integumentary: normal Extremities: no cyanosis, no edema, pulses normal, no ischemia or petechiae Neurologic: normal mental status, non-focal exam, pupils equal and round, CN II- XII normal, motor strength normal and Psychiatric: mood appropriate, affect normal CBC and BMP: 08/06/19 03:26 08/04/19 03:33 ABG, PT/INR, D-dimer: PT/INR, D-dimer PT 12.9 Sec. (12.2-14.9) 08/04/19 02:06 INR 1.00 (0.87-1.13) 08/04/19 02:06 Abnormal lab findings: Abnormal Labs 08/03/19 08/03/19 08/04/19 19:36 19:36 02:06 WBC 13.4 H Lymph % (Auto) 9.5 L Greeley % (Auto) Greeley # 0.9 H Seg Neutrophils % 83.4 H Seg Neutrophils # 11.2 H APTT 20.0 L Heparin Anti-Xa Level Sodium 135 L Carbon Dioxide 19 L BUN 22 H Creatinine 1.6 H Glucose 102 H Total Protein 8.5 H Albumin 3.8 L 08/04/19 08/04/19 08/04/19 03:33 03:33 20:02 WBC 15.1 H Lymph % (Auto) Gree[place] % (Auto) 7.8 H [place] # 1.2 H Seg Neutrophils % 77.7 H Seg Neutrophils # 11.8 H APTT Heparin Anti-Xa Level 0.15 L Sodium 135 L Carbon Dioxide 20 L BUN 24 H Creatinine 1.6 H Glucose 107 H Total Protein Albumin 08/05/19 08/05/19 02:01 10:16 WBC Lymph % (Auto) Greeley % (Auto) [place] # Seg Neutrophils % Seg Neutrophils # APTT Heparin Anti-Xa Level 0.17 L 0.29 L Sodium Carbon Dioxide BUN Creatinine Glucose Total Protein Albumin Chest x-ray: image reviewed Allied health notes reviewed: nursing
--- NOTE | 2019-08-05 13:50 | Magnetic Resonance Report ---
MRI CHEST WITH AND WITHOUT CONTRAST HISTORY: Right pulmonary mass, infection, pulmonary embolus. History of MRSA.. TECHNIQUE: Multiplane are, multisequence MR imaging with and without IV contrast. 18 mL of Magnevist was given intravenously. COMPARISON: CTA chest dated 08/03/2019. FINDINGS: Slightly limited exam with breathing motion artifact. The thyroid gland, tracheobronchial tree and esophagus are unremarkable. Heart size is normal. No pericardial effusion. No evidence for m ediastinal mass or adenopathy. The previously described pulmonary embolus on the right side is poorly imaged on MRI but appears decr eased significantly since the previous CTA chest. No new large pulmonary embolus is identified. Advanced bolus emphysema is again noted. This primarily affects the upper lobes. No obvious pulmonary mass is identified on MR with contrast. There is patchy airspace opacity in the posterior right lowe r lobe which could represent infiltrate or atelectasis. The remainder the lungs are grossly clear. A small layering right pleural effusion measures up to 1.9 cm in thickness. No left pleural effusion. Bony structures of the thoracic cage demonstrate normal osseous signal. No suspicious bony lesion. Limited images of the upper abdomen are unremarkable. IMPRESSION: This is not a diagnostic exam for pulmonary embolus but the right lung PE appears signif icantly decreased in size. There is patchy infiltrate or atelectasis in the right lower lobe. No disc rete lung mass is identified. Emphysematous changes. Small layering right pleural effusion. Signer Name: Venkat Nuñez Jr, MD Signed: 08/05/2019 1:46 PM Workstation Name: [id number]
[2019-08-05] MEDS: HEPARIN/ 0.45% NACL-25,000 UNIT/500 ML 25,000 UNIT/500 ML BAG IV SCH (14:51)
[2019-08-05] MEDS: NACL 0.45% 1000 ML 1,000 ML IV SCH (21:54)
--- NOTE | 2019-08-06 01:38 | Consultation ---
PULMONARY CRITICAL CARE CONSULTATION CONSULTING PHYSICIAN: Dr. Tran. REASON FOR CONSULTATION: Acute pulmonary embolus, possible pulmonary infarction. CHIEF COMPLAINT AND HISTORY OF PRESENT ILLNESS: The patient is a 59-year-old male with past medical history significant amongst other things for a diagnosis of being morbidly obese and also history of coronary artery disease, came in complaining of chest pain and shortness of breath, describes it as a catching feeling whenever he tries to take a deep breath. It has a pleuritic component to it. It has been going on for about a couple of days. He states it came on rather suddenly. He denies any recent long distance travel. Denies any new onset leg pain or swelling either unilaterally or bilaterally. He does have a 20+ pack year tobacco smoking history, still smoking up until the day he presented. He denied any sick contacts. He denied any gross hemoptysis. He denied any cough or expectoration. Denied vomiting, diarrhea, rhinorrhea or any suggestion of a viral syndrome. He admits to nonrestorative sleep and witnessed snoring as well as possible witnessed apneas, but has never been diagnosed with obstructive sleep apnea. He was evaluated in the Emergency Room. As part of the evaluation, a CT angiogram of the chest was done and it revealed a right lower lobe filling defect consistent with a rather large pulmonary embolus as well as a post-embolic infarct most likely with a small right pleural effusion. We are asked to assist with management. When I stopped by to see him, he was resting in bed, feeling a little bit better, was on a heparin drip. He denied any bleeding. He denied any gross hematuria. He denied any hematochezia or melena. He does admit that he occasionally has blood streaks in his stool and sometimes on his wipes and has never been, however, diagnosed with a GI bleed. He states he had a similar episode like this a few years back, but was never diagnosed with a pulmonary embolus and has never been treated with anticoagulation. This really is as much of the history of presentation as I have. PAST MEDICAL HISTORY: Obesity, hypertension, history of anxiety. PAST SURGICAL HISTORY: He has had a hernia repair and he has had knee surgery. MEDICATIONS: He was on at the time I stopped by to see him were reviewed. Pertinent medications included the following: Tylenol 650 mg p.o. q.4 hours p.r.n. mild pain or fevers, heparin drip was going at 1500 units per hour, morphine sulfate 2 mg IV q.4 hours p.r.n. moderate pain, Zofran 4 mg IV q.8 hours p.r.n. nausea and vomiting. ALLERGIES: No known drug allergies. DIET: Morbidly obese gentleman. Denies acute weight loss or gain in the preceding few weeks to months. FAMILY AND SOCIAL HISTORY: Lives in the community. He has a 20+ pack year tobacco smoking history. Denies alcohol or illicit drug use or abuse. Family history is otherwise significant for hypertension and diabetes. REVIEW OF SYSTEMS: No loss of consciousness. No new onset seizures. No new onset focal weakness. No gross hematochezia. He denies polyphagia or polydipsia. Denies heat or cold intolerance. He denies any new rash on his body. He denies periods of unexplained sadness and/or elation as may be consistent with depression or leticia. Complete 13-system review of systems obtained. Pertinent positives and/or negatives as in body of history above, otherwise they are noncontributory. PHYSICAL EXAMINATION: VITAL SIGNS: At presentation in the Emergency Room, he was afebrile, temperature 98.2 degrees Fahrenheit with a pulse of 69, respiratory rate of 18, blood pressure 117/79, O2 sats were 98% that was on room air. GENERAL: Middle-aged, morbidly obese male, normocephalic, atraumatic, talking to me in mostly full sentences, but with mildly increased respiratory effort. HEAD, EYES, EARS, NOSE AND THROAT: He is anicteric. No conjunctival erythema. Oropharynx was moist. Mallampati #4 oropharynx. He has a large neck circumference. No gross jugular venous distention. No thyromegaly. NECK: Grossly, there were no palpable lymph nodes in the supraclavicular or submandibular lymph node chains. LUNGS: Auscultation of both lung christensen significant only for diminished bilateral breath sounds as well as inspiratory right lower lobe rales, no wheezing. HEART: Heart sounds 1 and 2 are heard. They were regular in rate and rhythm at the time of my evaluation without overt rubs or murmurs. ABDOMEN: Soft, full, protuberant. Bowel sounds are positive, nontender, no palpable hepatosplenomegaly. EXTREMITIES: Without overt digital clubbing, cyanosis. He had trace pedal edema. Pedal pulses were 2+ bilaterally and strong. NEUROLOGIC: Pupils are equal, round, about 4 mm, reactive to light. Extraocular muscle movements were intact. He moved all 4 extremities spontaneously. Cranial nerves 2 through 12 are intact. Motor activity and sensory activity were intact. RECTAL: Deferred. SKIN: Normal turgor without overt cellulitis or rash. PSYCHIATRIC: His mood was normal. His affect was appropriate. LABORATORY DATA: From my review are as follows: Admission white cell count 13,400 with a hemoglobin of 15.0, hematocrit 45.0, platelet count 240. No manual differential. INR 1.0. Serum sodium was 135, potassium 4.8, chloride 102, bicarbonate 19, BUN 22, creatinine 1.6, glucose 102. Liver function tests essentially within normal limits. No microbiology studies. I have reviewed the CT scan. I have also reviewed the chest x-ray as well as the radiologist's interpretation. The main finding on the CT of the chest is a right lower lobe filling defect consistent with pulmonary emboli as well as some clot in the right upper lobe branch. He has a small pleural effusion. He appears to have likely eventration or elevation of the right hemidiaphragm also. He has borderline cardiomegaly. Lung windows reveal significant paraseptal emphysema involving the upper lobes in particular. No significant mediastinal adenopathy that I can see as well as some streaky parenchymal disease in the right lower lobe region. ASSESSMENT: 1. Acute pulmonary embolus. 2. Post-embolic infarct. 3. Small right pleural effusion versus hemorrhage. 4. Acute kidney insufficiency, possible chronic element. 5. History of hypertension. 6. Morbid obesity. 7. Tobacco use disorder. 8. History of anxiety. PLAN: We will continue the IV heparin therapy. We will hold on institution of oral anticoagulation at this time. I will send a stool guaiac. If he does have a possible GI bleeding, he will benefit from a GI evaluation before we switch him to oral anticoagulation. I have counseled strongly tobacco abstinence and he states he is motivated to stop at this time. His blood pressure will be monitored and followed while he is here. We will watch him for any signs of hemorrhage. I have explained the concepts of melena stool as well as coffee-ground emesis to him. He will be placed on GI prophylaxis. Flu and pneumonia vaccination will be addressed per protocol. There is really no acute indication from a hemodynamic standpoint for thrombolytic therapy and he does not seem to have significant clot burden. He is actually on room air. We will continue to watch him clinically in the step-down unit. Thank you very much for the consult, Dr. Tran. We will follow along. We will make further recommendations as the picture progresses/becomes clearer. JOB# [id number] JANNIE/BRISEYDA CASIANO
[2019-08-06 04:05] LABS: Hematocrit 38.1 % (35.5-45.6); Hemoglobin 12.8 gm/dl (11.8-15.2)
[2019-08-06] MEDS: HEPARIN/ 0.45% NACL-25,000 UNIT/500 ML 25,000 UNIT/500 ML BAG IV SCH (06:43)
[2019-08-06] MEDS: NACL 0.45% 1000 ML 1,000 ML IV SCH (09:39)
[2019-08-06] MEDS: TOPROL XL PO SCH (09:42)
[2019-08-06] MEDS: SODIUM CHLORIDE FLUSH SYRINGE 10 ML IV SCH (09:43)
[2019-08-06] MEDS: NORVASC PO SCH (09:43)
[2019-08-06] MEDS: ZESTRIL PO SCH (09:44)
--- NOTE | 2019-08-06 13:46 | Progress Note ---
Assessment and Plan Acute pulmonary embolus. Post-embolic infarct. Small right pleural effusion versus hemorrhage. Acute kidney insufficiency, possible chronic element. History of hypertension. Morbid obesity. Tobacco use disorder. History of anxiety. - continue full anticoagulation - follow stool guaiac - supplemental oxygen as needed to keep O2 sat's > 90% - tobacco abstinence counseled - weight loss counseled - hematology consultation per attending - GI prophylaxis - continue other care per attending / other consultants ... re-evaluate in am & prn Subjective Date of service: 08/06/19 Principal diagnosis: Ac. Pulm Embolus; Post-embolic infarct; LITO; HTN; Morbid obesity Interval history: Patient is seen today for: Acute pulmonary embolus; Post-embolic infarct; Small R. pleural effusion versus hemorrhage; Acute kidney insufficiency,; History of hypertension; Morbid obesity; Tobacco use disorder; History of anxiety. Seen and examined at bedside; 24hour events reviewed; nursing and respiratory care staff consulted; no adverse overnight events reported to me; resting peacefully in bed; Objective Vital Signs - 12hr 08/06/19 08/06/19 08/06/19 02:00 02:30 03:00 Temperature Pulse Rate 57 L 56 L 58 L Pulse Rate [ From Monitor] Respiratory 16 17 10 L Rate Blood Pressure 123/73 113/65 113/70 O2 Sat by Pulse 93 96 99 Oximetry 08/06/19 08/06/19 08/06/19 03:30 03:52 04:00 Temperature 98.9 F Pulse Rate 59 L 56 L Pulse Rate [ From Monitor] Respiratory 14 17 Rate Blood Pressure 113/70 113/70 O2 Sat by Pulse 95 93 Oximetry 08/06/19 08/06/19 08/06/19 04:30 05:00 05:30 Temperature Pulse Rate 57 L 57 L 58 L Pulse Rate [ From Monitor] Respiratory 17 18 18 Rate Blood Pressure 142/76 145/81 145/81 O2 Sat by Pulse 94 93 93 Oximetry 08/06/19 08/06/19 08/06/19 06:00 06:30 07:00 Temperature Pulse Rate 61 59 L 62 Pulse Rate [ From Monitor] Respiratory 11 L 20 24 Rate Blood Pressure 146/80 146/80 133/83 O2 Sat by Pulse 98 93 96 Oximetry 08/06/19 08/06/19 08/06/19 07:30 08:00 08:30 Temperature 98.2 F Pulse Rate 67 74 63 Pulse Rate [ 72 From Monitor] Respiratory 12 12 17 Rate Blood Pressure 133/83 133/83 156/104 O2 Sat by Pulse 96 96 95 Oximetry 08/06/19 08/06/19 08/06/19 08:59 09:00 09:43 Temperature Pulse Rate 67 61 Pulse Rate [ From Monitor] Respiratory 13 Rate Blood Pressure 156/104 101/64 O2 Sat by Pulse 96 91 Oximetry 08/06/19 08/06/19 08/06/19 09:44 10:00 11:00 Temperature Pulse Rate 61 59 L 62 Pulse Rate [ From Monitor] Respiratory 9 L 19 Rate Blood Pressure 101/64 101/64 171/122 O2 Sat by Pulse 98 96 Oximetry 08/06/19 12:00 Temperature 98.4 F Pulse Rate 65 Pulse Rate [ 65 From Monitor] Respiratory 13 Rate Blood Pressure 143/93 O2 Sat by Pulse 95 Oximetry Constitutional: no acute distress, other (middle aged obese CM, normocephalic and atraumatic ) Eyes: non-icteric ENT: oropharynx moist, other (Mallampati 3) Neck: supple, no lymphadenopathy, no JVD, other (large neck circumference) Effort: mildly labored Ascultation: Right: diminished breath sounds (base), Bilateral: rhonchi Percussion: Bilateral: not dull Cardiovascular: regular rate and rhythm Gastrointestinal: normoactive bowel sounds, soft, non-tender, non-distended, other (protuberant) Integumentary: normal Extremities: no cyanosis, no edema, pulses normal, no ischemia or petechiae Neurologic: normal mental status, non-focal exam, pupils equal and round, CN II- XII normal, motor strength normal and Psychiatric: mood appropriate, affect normal CBC and BMP: 08/06/19 03:26 08/04/19 03:33 ABG, PT/INR, D-dimer: PT/INR, D-dimer PT 12.9 Sec. (12.2-14.9) 08/04/19 02:06 INR 1.00 (0.87-1.13) 08/04/19 02:06 Abnormal lab findings: Abnormal Labs 08/03/19 08/03/19 08/04/19 19:36 19:36 02:06 WBC 13.4 H Lymph % (Auto) 9.5 L [place] % (Auto) [place] # 0.9 H Seg Neutrophils % 83.4 H Seg Neutrophils # 11.2 H APTT 20.0 L Heparin Anti-Xa Level Sodium 135 L Carbon Dioxide 19 L BUN 22 H Creatinine 1.6 H Glucose 102 H Total Protein 8.5 H Albumin 3.8 L 08/04/19 08/04/19 08/04/19 03:33 03:33 20:02 WBC 15.1 H Lymph % (Auto) [place] % (Auto) 7.8 H [place] # 1.2 H Seg Neutrophils % 77.7 H Seg Neutrophils # 11.8 H APTT Heparin Anti-Xa Level 0.15 L Sodium 135 L Carbon Dioxide 20 L BUN 24 H Creatinine 1.6 H Glucose 107 H Total Protein Albumin 08/05/19 08/05/19 08/05/19 02:01 10:16 17:02 WBC Lymph % (Auto) [place] % (Auto) [place] # Seg Neutrophils % Seg Neutrophils # APTT Heparin Anti-Xa Level 0.17 L 0.29 L 0.22 L Sodium Carbon Dioxide BUN Creatinine Glucose Total Protein Albumin 08/05/19 08/06/19 23:09 08:29 WBC Lymph % (Auto) [place] % (Auto) [place] # Seg Neutrophils % Seg Neutrophils # APTT Heparin Anti-Xa Level 0.17 L < 0.10 L Sodium Carbon Dioxide BUN Creatinine Glucose Total Protein Albumin Allied health notes reviewed: nursing
[2019-08-06] MEDS ORDERED: PEPCID PO SCH (14:00)
--- NOTE | 2019-08-06 15:50 | Progress Note ---
Hospitalist Physical - Constitutional Vitals: Temp Pulse Resp BP Pulse Ox 98.4 F 70 18 124/85 95 08/06/19 12:00 08/06/19 15:00 08/06/19 15:00 08/06/19 15:00 08/06/19 15:00 General appearance: Present: no acute distress Results - Labs CBC & Chem 7: 08/06/19 03:26 08/04/19 03:33 Labs: Laboratory Last Values WBC 15.1 K/mm3 (4.5-11.0) H 08/04/19 03:33 RBC 4.40 M/mm3 (3.65-5.03) 08/04/19 03:33 Hgb 12.8 gm/dl (11.8-15.2) 08/06/19 03:26 Hct 38.1 % (35.5-45.6) 08/06/19 03:26 MCV 91 fl (84-94) 08/04/19 03:33 MCH 31 pg (28-32) 08/04/19 03:33 MCHC 34 % (32-34) 08/04/19 03:33 RDW 15.0 % (13.2-15.2) 08/04/19 03:33 Plt Count 206 K/mm3 (140-440) 08/06/19 03:26 Lymph % (Auto) 14.0 % (13.4-35.0) 08/04/19 03:33 [place] % (Auto) 7.8 % (0.0-7.3) H 08/04/19 03:33 Eos % (Auto) 0.2 % (0.0-4.3) 08/04/19 03:33 Baso % (Auto) 0.3 % (0.0-1.8) 08/04/19 03:33 Lymph # 2.1 K/mm3 (1.2-5.4) 08/04/19 03:33 [place] # 1.2 K/mm3 (0.0-0.8) H 08/04/19 03:33 Eos # 0.0 K/mm3 (0.0-0.4) 08/04/19 03:33 Baso # 0.1 K/mm3 (0.0-0.1) 08/04/19 03:33 Seg Neutrophils % 77.7 % (40.0-70.0) H 08/04/19 03:33 Seg Neutrophils # 11.8 K/mm3 (1.8-7.7) H 08/04/19 03:33 PT 12.9 Sec. (12.2-14.9) 08/04/19 02:06 INR 1.00 (0.87-1.13) 08/04/19 02:06 APTT 20.0 Sec. (24.2-36.6) L 08/04/19 02:06 Heparin Anti-Xa Level 0.19 U.I./ml (0.3-0.7) L 08/06/19 14:48 Sodium 135 mmol/L (137-145) L 08/04/19 03:33 Potassium 4.5 mmol/L (3.6-5.0) 08/04/19 03:33 Chloride 98.2 mmol/L (98-107) 08/04/19 03:33 Carbon Dioxide 20 mmol/L (22-30) L 08/04/19 03:33 21 mmol/L 08/04/19 03:33 BUN 24 mg/dL (9-20) H 08/04/19 03:33 1.6 mg/dL (0.8-1.5) H 08/04/19 03:33 Estimated GFR 44 ml/min 08/04/19 03:33 15 % 08/04/19 03:33 Glucose 107 mg/dL (75-100) H 08/04/19 03:33 Calcium 9.4 mg/dL (8.4-10.2) 08/04/19 03:33 0.50 mg/dL (0.1-1.2) 08/03/19 19:36 AST 18 units/L (5-40) 08/03/19 19:36 ALT 20 units/L (7-56) 08/03/19 19:36 100 units/L (35-129) 08/03/19 19:36 < 0.010 ng/mL (0.00-0.029) 08/05/19 18:07 NT-Pro-B Natriuret Pep 37.83 pg/mL (0-900) 08/03/19 19:36 8.5 g/dL (6.3-8.2) H 08/03/19 19:36 3.8 g/dL (3.9-5) L 08/03/19 19:36 0.8 % 08/03/19 19:36 Active Medications - Current Medications Current Medications: Generic Name Dose Route Start Last Admin Trade Name Freq PRN Reason Stop Dose Admin Acetaminophen 650 mg 08/04/19 02:41 08/05/19 10:03 Tylenol PO 650 mg Q4H PRN Administration Pain MILD(1-3)/Fever >100.5/[place] Amlodipine Besylate 5 mg 08/04/19 16:15 08/06/19 09:43 Norvasc PO 5 mg QDAY JOHN Administration Atorvastatin Calcium 40 mg 08/04/19 16:15 08/06/19 09:42 Lipitor PO 40 mg QDAY JOHN Administration Famotidine 20 mg 08/06/19 14:00 08/06/19 15:49 Pepcid PO 20 mg QDAY JOHN Administration Heparin Sodium/Sodium Chloride 25,000 unit in 500 mls @ 30 mls/hr 08/04/19 02:00 08/06/19 09:00 Heparin/ 0.45% Nacl-25,000 Unit/500 Ml IV 2,350 units/hr TITR JOHN 47 mls/hr Titration Protocol 1,500 UNITS/HR Sodium Chloride 1,000 mls @ 100 mls/hr 08/04/19 04:00 08/06/19 09:39 Nacl 0.45% 1000 Ml IV 100 mls/hr DIRECT JOHN Administration Lisinopril 30 mg 08/04/19 16:15 08/06/19 09:44 Zestril PO 30 mg QDAY JOHN Administration Metoprolol Succinate 25 mg 08/04/19 16:15 08/06/19 09:42 Toprol Xl PO Not Given QDAY JOHN Morphine Sulfate 2 mg 08/04/19 02:41 08/05/19 15:05 Morphine IV 2 mg Q4H PRN Administration Pain, Moderate (4-6) Ondansetron HCl 4 mg 08/04/19 02:41 Zofran IV Q8H PRN Nausea And Vomiting Sodium Chloride 10 ml 08/04/19 10:00 08/06/19 09:43 Sodium Chloride Flush Syringe 10 Ml IV 10 ml BID JOHN Administration Sodium Chloride 10 ml 08/04/19 02:41 Sodium Chloride Flush Syringe 10 Ml IV PRN PRN LINE FLUSH
[2019-08-06 20:20] VITALS: BP 137/74
--- NOTE | 2019-08-07 18:04 | Discharge Summary ---
Providers - Providers Date of Admission: 08/04/19 02:41 Attending physician: GERA ZAVALETA MD 08/04/19 02:41 Consult to Physician [CONS] Urgent Comment: Consulting Provider: TANIA RODRIGUEZ Physician Instructions: Reason For Exam: pe/hemorrage 08/04/19 02:44 Consult to Physician [CONS] Urgent Comment: Consulting Provider: URVASHI LEON Physician Instructions: Reason For Exam: pe/hemorrage 08/06/19 13:18 Consult to Physician [CONS] Urgent Comment: Consulting Provider: GAURI DOE Physician Instructions: Reason For Exam: acute P.E. Primary care physician: CULLET WASHER Hospitalization Condition: Fair Disposition: DC-07 LEFT AGAINST MED ADVICE Core Measure Documentation - Palliative Care Palliative Care/ Comfort Measures: Not Applicable Exam - Constitutional Vitals: Temp Pulse Resp BP Pulse Ox 97.4 F L 68 20 137/74 99 08/06/19 20:00 08/06/19 20:00 08/06/19 20:00 08/06/19 20:00 08/06/19 20:00 Plan Follow up with: CARL DUGAN MD [Primary Care Provider] - 3-5 Days
--- NOTE | 2019-08-07 19:11 | Event Note ---
Date: 08/06/19 [id number]
--- NOTE | 2019-08-08 03:02 | Consultation ---
REFERRING PHYSICIAN: Karolina Lugo M.D. REASON FOR CONSULTATION: Pulmonary embolism. HISTORY OF PRESENT ILLNESS: I saw the patient, a 59-year-old male, in the medical floor. The patient was admitted on for shortness of breath and pleuritic chest pain. He has a history of hypertension and anxiety. The patient had a history of fall a few days ago and hit the back of the chest. He came to the hospital because of these symptoms. During this admission, he was found to have pulmonary embolism in right lower lobe. He has been having chest discomfort for 2 weeks prior to admission. The patient was started on heparin drip. I have been asked to evaluate the patient. At this time, the chest pain is better and shortness of breath is better. He wants to go home. No headache; no visual disturbances; no ear discharge; no hematemesis; no hematochezia; no seizure, syncope or loss of consciousness. The patient is slightly obese. No previous DVT or PE. No history of recent long distance travel. No family history of thrombus except for mother who had thrombosis at an advanced age. The patient is a nonsmoker. ALLERGIES: None. HOME MEDICATIONS: Metoprolol. SOCIAL HISTORY: Nonsmoker. MEDICATIONS: Reviewed. PHYSICAL EXAMINATION: VITAL SIGNS: Temperature 97, pulse 59, respirations 18, BP 137/74. HEENT: No pallor, no icterus. NECK: No neck lymph nodes. HEART: S1, S2. LUNGS: Clear to auscultation. ABDOMEN: Soft. EXTREMITIES: Pedal edema present, but no calf tenderness. NEUROLOGIC: Alert, awake, oriented. LABORATORY DATA: Hemoglobin 12, platelet 206, white cell 15. Potassium 4.5, creatinine 1.6, calcium 9.4. Right lower lobe PE, large, occlusive. No DVT in the leg. No personal history of DVT or PE. The patient's mother had DVT. ASSESSMENT: 1. History of hypertension. 2. History of anxiety. 3. History of fall. PLAN: The patient's heparin will be changed to Eliquis and I will see him in the clinic. We will do hypercoagulable investigations as an outpatient. He would need 3-6 months of anticoagulation at least to start. I will follow the patient during inpatient stay. JOB# [id number] NM/NTS
== END 2019-08-06 20:46 | disposition left against medical advice (07) | DRG 176 ==
LOC: ED 16:29 → IMCU 08-04 02:41
PROVIDERS: ADMIT Internal Medicine; ATTEND Internal Medicine
DX: I26.99 Other pulmonary embolism without acute cor pulmonale (principal); F17.210 Nicotine dependence, cigarettes, uncomplicated; Z53.21 Procedure and treatment not carried out due to patient leaving prior to being seen by health care provider; E66.01 Morbid (severe) obesity due to excess calories; I25.10 Atherosclerotic heart disease of native coronary artery without angina pectoris; F41.9 Anxiety disorder, unspecified; J43.9 Emphysema, unspecified; I74.8 Embolism and thrombosis of other arteries; J90 Pleural effusion, not elsewhere classified; I12.9 Hypertensive chronic kidney disease with stage 1 through stage 4 chronic kidney disease, or unspecified chronic kidney disease; N18.9 Chronic kidney disease, unspecified; R58 Hemorrhage, not elsewhere classified; I25.2 Old myocardial infarction; Z68.38 Body mass index [BMI] 38.0-38.9, adult; Z79.01 Long term (current) use of anticoagulants; Z83.3 Family history of diabetes mellitus; Z79.82 Long term (current) use of aspirin; Z91.81 History of falling
CPT/HCPCS: 36415; 71046; 71275; 71552; 80048; 80053; 83880; 84484; 85014; 85018; 85025; 85049; 85520; 85610; 85730; 93005; 93010; 93970; 99292; G0378; A9270-GY; A9577; J1644; J2270; J7030; Q9967

== ENCOUNTER 2021-07-23 07:29 | Day surgery (SDC) | payer MEDICAID ==
[2021-07-23] MEDS ORDERED: SODIUM CHLORIDE 0.9% 500 ML 500 ML IV SCH (10:00)
[2021-07-23] MEDS ORDERED: ASPIRIN EC 325 MG TAB PO NR (10:00)
[2021-07-23] MEDS ORDERED: MIDAZOLAM 2 MG/2 ML INJ IV NR (10:11)
[2021-07-23 10:32] LABS: Calcium 9.5 mg/dL (8.4-10.2)
[2021-07-23 10:33] LABS: INR 0.99 (0.87-1.13)
[2021-07-23 10:51] VITALS: BP 104/65
--- NOTE | 2021-07-23 12:07 | Event Note ---
Date: 07/23/21 Patient presented for outpatient cardiac catheterization, we found evidence of chronic kidney disease with a creatinine of 2.0. Due to high risk of contrast nephropathy, the procedure will be postponed, the patient will be referred for nephrology management of his kidney disease, and the test will be rescheduled for preprocedure overnight admission for IV normal saline hydration prior to contrast angiography.
[2021-07-23 16:36] LABS: Basophils # (Auto) 0.1 K/mm3 (0.0-0.1); Basophils % (Auto) 0.6 % (0.0-1.8); Eosinophils # (Auto) 0.6 K/mm3 (0.0-0.4); Eosinophils % (Auto) 5.6 % (0.0-4.3); Hematocrit 39.9 % (35.5-45.6); Hemoglobin 13.3 gm/dl (11.8-15.2); Mean Corpuscular HGB Conc 33 % (32-34); Mean Corpuscular Volume 94 fl (84-94); Monocytes # (Auto) 0.8 K/mm3 (0.0-0.8); Monocytes % (Auto) 7.4 % (0.0-7.3); Platelet Count 235 K/mm3 (140-440); Red Blood Count 4.26 M/mm3 (3.65-5.03); Red Cell Distribution Width 15.5 % (13.2-15.2)
[2021-07-23 17:17] LABS: RBC Morphology Normal
--- NOTE | 2021-07-24 10:38 | Electrocardiograph Report ---
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
== END 2021-07-23 12:34 | disposition home or self-care (01) ==
LOC: CATHLABREC 07:29
PROVIDERS: ATTEND Internal Medicine Cardiovascular Disease
DX: I25.110 Atherosclerotic heart disease of native coronary artery with unstable angina pectoris (principal); Z53.8 Procedure and treatment not carried out for other reasons; I10 Essential (primary) hypertension; E78.00 Pure hypercholesterolemia, unspecified; G47.30 Sleep apnea, unspecified; F17.210 Nicotine dependence, cigarettes, uncomplicated; Z79.899 Other long term (current) drug therapy; Z98.890 Other specified postprocedural states
CPT/HCPCS: 36415; 80048; 85007; 85025; 85610; 85730; 93005; J2250; J7040

== ENCOUNTER 2021-09-17 05:54 | Day surgery (SDC) | payer MEDICAID ==
[2021-09-17] MEDS ORDERED: SODIUM CHLORIDE 0.9% 500 ML 500 ML IV SCH (07:00)
[2021-09-17] MEDS ORDERED: SODIUM CHLORIDE 0.9% 1000 ML 1,000 ML ONE (07:06)
[2021-09-17 07:12] LABS: Basophils # (Auto) 0.1 K/mm3 (0.0-0.1); Basophils % (Auto) 0.8 % (0.0-1.8); Eosinophils # (Auto) 0.3 K/mm3 (0.0-0.4); Eosinophils % (Auto) 2.6 % (0.0-4.3); Hemoglobin 14.4 gm/dl (11.8-15.2); Lymphocytes # (Auto) 2.2 K/mm3 (1.2-5.4); Lymphocytes % (Auto) 19.8 % (13.4-35.0); Mean Corpuscular HGB Conc 34 % (32-34); Mean Corpuscular Volume 94 fl (84-94); Monocytes # (Auto) 0.8 K/mm3 (0.0-0.8); Monocytes % (Auto) 7.2 % (0.0-7.3); Platelet Count 235 K/mm3 (140-440); Red Blood Count 4.49 M/mm3 (3.65-5.03); Red Cell Distribution Width 15.5 % (13.2-15.2)
[2021-09-17 07:26] LABS: Calcium 9.2 mg/dL (8.4-10.2); INR 0.86 (0.87-1.13)
[2021-09-17 07:27] LABS: Partial Thromboplastin Time 25.8 Sec. (24.2-36.6)
--- NOTE | 2021-09-17 11:06 | Electrocardiograph Report ---
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
[2021-09-17] MEDS ORDERED: fentaNYL 100 MCG/2 ML INJ ONE (11:08)
[2021-09-17] MEDS ORDERED: VERAPAMIL 5 MG/2 ML INJ ONE (11:08)
[2021-09-17] MEDS ORDERED: MIDAZOLAM 2 MG/2 ML INJ ONE (11:08)
[2021-09-17] MEDS ORDERED: HEPARIN 10,000 UNITS/10 ML VIAL ONE (11:08)
[2021-09-17] MEDS ORDERED: LIDOCAINE (2%) 20 MG/1 ML VIAL 20 ML MDV INFILTRATI ONE ×3 (11:08→11:59)
[2021-09-17] MEDS ORDERED: HEPARIN/NS 5000 UNIT/500ML 1,000 ML IR ONE (11:08)
[2021-09-17] MEDS ORDERED: NITROGLYCERIN SYRINGE 0 ML ONE (11:09)
[2021-09-17] MEDS ORDERED: MIDAZOLAM 2 MG/2 ML INJ IV ONE ×3 (11:37→12:00)
[2021-09-17] MEDS ORDERED: fentaNYL 100 MCG/2 ML INJ IV ONE ×3 (11:38→12:01)
[2021-09-17] MEDS ORDERED: HEPARIN 2,000 UNIT in SODIUM CHLORIDE 0.9% 500 ML 1,000 ML IR ONE (11:59)
[2021-09-17] MEDS ORDERED: SODIUM CHLORIDE 0.9% 500 ML 500 ML ONE (12:11)
[2021-09-17] MEDS ORDERED: SODIUM CHLORIDE 0.9% 1000 ML 1,000 ML IV SCH (12:45)
--- NOTE | 2021-09-17 12:48 | Discharge Summary ---
Short Stay Discharge Plan Activity: advance as tolerated Diet: low fat, low cholesterol, low salt Wound: keep clean and dry Special Instructions: no heavy lifting (3 days) Follow up with: ANG MANCILLA [Primary Care Provider] - 7 Days ROXANA ERAZO MD [Staff Physician] - 7 Days
[2021-09-17] MEDS ORDERED: traMADol 50 MG TAB PO PRN (13:30)
--- NOTE | 2021-09-17 13:48 | Cardiac Catherization Report ---
DATE OF SERVICE: 09/17/2021 CARDIAC CATHETERIZATION REPORT REASON FOR PROCEDURE: The patient is a 61-year-old man who has a history of coronary artery disease and had previous coronary stent placed in the distal right coronary artery. He also has COPD and chronic sleep apnea in the setting of marked obesity. He presented with progressive dyspnea and was recommended for a right and left heart catheterization. It is noted that he has chronic kidney disease and as a prelude to his cardiac catheterization, he underwent several hours of intravenous saline hydration. Risks and benefits of the procedure including higher than normal risk for contrast nephropathy was discussed extensively with the patient and he consents to proceed. PROCEDURES: 1. Right heart catheterization. 2. Left heart catheterization. 3. Selective left and right coronary angiography. 4. Left ventricular catheterization. 5. Sedation time start 11:58, end 12:17. DESCRIPTION OF PROCEDURE: The patient was prepped and draped in a sterile fashion after informed consent. The right femoral artery and vein were both entered using the Seldinger technique. A 6-[place] sheath was inserted into the artery and an 8-[place] sheath into the vein. We then advanced a [place] catheter to the pulmonary artery position. Cardiac output was measured using thermodilution method. We then advanced a right Surendra catheter into the left ventricle. Simultaneous right and left heart filling pressures were then recorded. The [place] was then withdrawn and right heart pressures recorded on pullback. The right Surendra catheter was then withdrawn and a transaortic gradient recorded. Selective right and left coronary angiography was then performed using the right Surendra catheter and a #4 left Surendra. The catheters were then removed, sheath removed and hemostasis over the arterial site using an Angio-Seal device, and over the venous site using manual compression. The patient was returned to the postprocedure unit in stable condition. There were no complications. FINDINGS: HEMODYNAMICS: Mean right atrial pressure was 20. Right ventricular pressure was 45/20-25. Pulmonary artery pressure was 45/25. Pulmonary artery wedge pressure was 25. Left ventricular end-diastolic pressure was 25-30. Ascending aortic pressure was 125/80. There was no significant pressure gradient on pullback across the aortic valve. Cardiac output was 5.2 liters per minute. CORONARY ANGIOGRAPHY: Left main coronary artery was free of significant disease. The left coronary vessels including the LAD, ramus intermedius and circumflex artery as well all of very small caliber, 2.5 mm in diameter or less. The left anterior descending artery and its diagonal branches were free of significant disease. A medium-sized ramus intermedius artery contained mild luminal irregularities. The circumflex artery and its obtuse marginal branches contained mild luminal irregularities. The right coronary artery was a larger caliber, dominant vessel. This vessel contained a 20-30% stenosis of its mid segment. The distal posterolateral branch of the right coronary artery contained diffuse mild nonobstructive atherosclerosis. A stent was previously described to have implanted into the mid posterior descending artery, the stent was not optimally visible on angiographic exam, but no obstructive lesions were noted within this vessel segment. Left ventricular angiography was not performed, total contrast used for the procedure was 35 mL of Visipaque. CONCLUSION: 1. [id number] increase in right heart filling pressures, moderate pulmonary hypertension. 2. Mild nonobstructive disease of the mid and distal segments of the right coronary artery, otherwise no significant obstructive lesions noted in either left or right coronary systems. 3. Total contrast 35 mL of Visipaque. RECOMMENDATIONS: 1. Aggressive risk factor modification and medical therapy for nonobstructive coronary lesions. 2. The patient is recommended for further followup and management of his pulmonary disease including COPD and sleep apnea, likely etiologies of his progressive dyspnea. TID: [id number] RECEIPT: [id number] PHIL/RICCI
[2021-09-17 16:04] VITALS: BP 128/73
--- NOTE | 2021-10-15 10:20 | Short Stay Summary ---
Short Stay Documentation Date of service: 09/17/21 Narrative H&P: 61-year-old man who presented for outpatient right and left heart catheterization. Indication was progressive exertional dyspnea and fatigue. - History Principal diagnosis: Shortness of breath and fatigue Past Medical History: CAD, COPD, other (Sleep apnea) Past Surgical History: PTCA - Allergies and Medications Current Medications: Allergies No Known Allergies Allergy (Verified 06/07/15 05:39) Home Medications Medication Instructions Recorded Confirmed Last Taken Type Apixaban [Eliquis] 5 mg PO BID 09/17/21 09/17/21 09/14/21 History 5 mg Aspirin EC [Halfprin EC] 81 mg PO QDAY 09/17/21 09/17/21 09/17/21 07:00 History 81 mg AtorvaSTATin [Lipitor] 40 mg PO DAILY 09/17/21 09/17/21 09/16/21 History 40 mg Furosemide [Lasix] 40 mg PO DAILY 09/17/21 09/17/21 09/16/21 History 40 mg Lisinopril [Zestril TAB] 30 mg PO DAILY 09/17/21 09/17/21 09/16/21 History 30 mg Metoprolol Xl [Metoprolol 25 mg PO DAILY 09/17/21 09/17/21 09/16/21 History SUCCINATE ER TAB] 25 mg Omeprazole 20 mg PO DAILY 09/17/21 09/17/21 09/16/21 History 20 mg Potassium Chloride [K-Dur] 20 meq PO DAILY 09/17/21 09/17/21 09/16/21 History 20 meq amLODIPine 5 mg PO DAILY 09/17/21 09/17/21 09/16/21 History 5 mg - Physical exam General appearance: no acute distress Integumentary: no rash HEENT: Atraumatic Lungs: Other (Diminished breath sounds bilaterally) Breasts: deferred Heart: Normal S1, Normal S2 Gastrointestinal: other (Soft, nontender) Male Genitourinary: deferred Rectal Exam: deferred Extremities: No edema Neurological: Other (Nonfocal) - Hospital course Hospital course: See dictated cardiac catheterization report for details of the procedure, see discharge note for discharge details. - Disposition Condition at discharge: Good Disposition: 01 HOME / SELF CARE / HOMELESS Short Stay Discharge Plan Follow up with: ROXANA ERAZO MD [Staff Physician] - 7 Days ANG MANCILLA [Primary Care Provider] - 7 Days Forms: CardCath PCI D/C Instructions
== END 2021-09-17 16:59 | disposition home or self-care (01) ==
LOC: CATHLABREC 05:54
PROVIDERS: ATTEND Internal Medicine Cardiovascular Disease
DX: R94.39 Abnormal result of other cardiovascular function study (principal); R07.9 Chest pain, unspecified; I25.10 Atherosclerotic heart disease of native coronary artery without angina pectoris; J44.9 Chronic obstructive pulmonary disease, unspecified; N18.9 Chronic kidney disease, unspecified; Z79.82 Long term (current) use of aspirin; Z79.899 Other long term (current) drug therapy; Z95.5 Presence of coronary angioplasty implant and graft; Z98.890 Other specified postprocedural states
CPT/HCPCS: 36415; 80048; 85025; 85610; 85730; 93005; 93460; 99156; C1760; C1894; J1644; J2250; J3010; J7030; J7040; Q9967